=== PATIENT | male | born 1980 | race Caucasian/White ===

== ENCOUNTER 2025-10-01 20:09 | Emergency (ER) | payer OTHER, SELFPAY ==
[2025-10-01 20:17] VITALS: BP 127/83; PULSE 133; O2SAT 98; BMI 30.1
--- NOTE | 2025-10-01 20:57 | XR_ITS ---
[place] [id number] Patient Name: SABINO CARDENAS MRN: [id number] date: 1980 Sex: M Assigned Patient Location: ER Current Patient Location: ED.MAIN Accession/Order Number: [id number] Exam Date: 10/01/2025 21:02 Report Date: 10/01/2025 21:15 At the request of: LUIS ARMANDO JAVIER MD Procedure: XR ankle RT min 3V 3 views right ankle HISTORY: Right ankle injury Adequate bony alignment without acute displaced fracture. Calcaneal spurring. Ankle mortise intact. Soft tissue prominence anteriorly. XR/XR ankle RT min 3V IMPRESSION: No acute displaced fracture. Impression dictated by: Alireza Taylor M.D. 10/01/2025 9:15 PM Dictation Location: [place] [id number] Electronically authenticated by: [id number] Y Date: 10/01/2025 21:15
--- OUTSIDE RECORDS SUMMARY | 2025-10-01 21:10 | XMS_ITS | Clinical Summary ---
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 4000 mL 4Active Additional Information Patient not taking.Reason: Course of Therapy Completed, Reported on 02/13/2025 peg 3350-Electrolytes (GOLYTELY) 236-22.74-6.74 -5.86 gram suspension Refer to printed patient instructions that will be mailed to you. 4000 mL 5Active Additional Information Patient not taking.Reason: Course of Therapy Completed, Reported on 02/13/2025 Active Problems ProblemNoted DateDiagnosed DateObesity, Class I, BMI 30-34.908/olitis 06/28/20242239Lgckwigmzry15/02/4748Yszcqgzecmn53/09/2024annabinoid hyperemesis jjpyjtch58/01/2024KI (acute kidney injury)02/26/20248883Cozvnbfbcjqh71/31/2024 Diverticular xkutzwr3302/26/2024Generalized abdominal pain02/26/2024Nausea & gavgaxiz84/31/2024annabis use cjwnkxer12/31/9187Wxafaa83/31/2024Lumbago 04/15/2015 Family History Medical HistoryRelationCommentsDiabetesMotherColon CancerNo Family History RelationStatusCommentsMotherAlive Social History Tobacco UseTypesPacks/DayYears UsedDateSmoking Tobacco: Some DaysCigarettes Smokeless Tobacco: Never Tobacco Cessation:Ready to Q uit: Not Asked; Counseling Given: Not Answered Alcohol UseStandard Drinks/WeekCommentsNever0 (1 standard drink = 0.6 oz pure alcohol)[facility] UtilitiesAnswerDate RecordedIn the past 12 months has the electric, gas, oil, or water [employer] threatened to shut off services in your home?No 12/03/2024Social Connection and Isolation PanelAnswerDate RecordedIn a typical week, how many times do you talk on the phone with family, friends, or neighbors?Once a week12/03/2024How often do you get together with friends or relatives?Never12/03/2024How often do you attend anabaptist or buddhist services? Never12/03/2024Do you belong to any clubs or organizations such as anabaptist groups, unions, fraternal or athletic groups, or school groups?No12/03/2024How often do you attend meetings of the clubs or organizations you belong to?Never 12/03/2024re you , , , , never , or living with a partner?Thkjkfktn12/06/2025UDIT-CAnswerDate RecordedQ1: How often do you have a drink containing alcohol?Never12/03/2024Q2: How many drinks containing alcohol do you have on a typical day when you are drinking?Patient does not drink12/03/2024Q3: How often do you have six or more drinks on one occasion?Never12/03/2024Overall Financial Resource Strain (CARDIA)AnswerDate RecordedHow hard is it for you to pay for the very basics like food, housing, medical care, and heating?Hard12/03/2024PHQ-2AnswerDate RecordedPHQ-2 score6 12/03/2024[facility] - Occupational Stress QuestionnaireAnswerDate RecordedDo you feel stress - tense, restless, nervous, or anxious, or unable to sleep at night because yourmind is troubled all the time - these days?Very much12/03/2024Exercise Vital SignAnswerDate RecordedOn average, how many days per week do you engage in moderate to strenuous exercise (like a brisk walk)?Patient sykgzzvs19/06/2025On average, how many minutes do you engage in exercise at this level?Patient oclseawy84/06/2025Hunger Vital Sign AnswerDate RecordedWithin the past 12 months, you worried that your food would run out before you got the money to buymore.Often true12/03/2024Within the past 12 months, the food you bought just didn't last and you didn't have money to get more.Often true12/03/2024PRAPARE - TransportationAnswerDate RecordedIn the past 12 months, has lack of transportation kept you from medical appointments or from getting medications?No12/03/2024In the past 12 months, has lack of transportation kept you from meetings, work, or from getting things needed for daily living?No12/03/2024Housing Stability Vital SignAnswerDate RecordedIn the last 12 months, was there a time when you were not able to pay the mortgage or rent on time?No06/29/2024In the last 12 months, how many places have you lived?1 06/29/2024In the last 12 months, was there a time when you did not have a steady place to sleep or slept in ashelter (including now)?No06/29/2024rea Deprivation IndexAnswerDate RecordedNational Score (1-100), lower number is lower risk98 02/27/2024State Score (1-10), lower number is lower bqvy424502/27/2024ata from: https://www.neighborhoodatlas.medicine.[facility].edu/. Last address used for pnmptvwkubn[address]02/27/2024Sex and Gender InformationValueDate Recorded Sex Assigned at AxxjuTtyu75/09/2022 1:54 PM EDTLegal VivXdpe80/02/2012 8:25 AM ESTGender TxsdhhkrWwgy54/09/2022 1:54 PM EDTSexual AxiipddoxvtCvcvpnhy91/09/2022 1:54 PM EDT Last Filed Vital Signs Vital SignReadingTime TakenCommentsBlood Upgsjozu755/9902/13/2025 2:39 PM EDT Pscel16448/19/2025 2:39 PM CMNQthjvsnsexa76.9 ??C (98.4 ??F)02/13/2025 2:39 PM EDTRespiratory Shxt526902/13/2025 2:39 PM EDTOxygen Gvqaqtjkta82%02/13/2025 2:39 PM EDTInhaled Oxygen Concentration--Lsefzn53.7 kg (189 lb 0.7 oz)02/13/2025 2:39 PM LDCDiijsl055.2 cm (5' 7 )12/05/2024 2:36 PM ESTBody Mass Index29.61012/05/2024 2:36 PM EST Plan of Treatment Health MaintenanceDue DateLast DoneCommentsAnxiety Nygrxhqzl81/26/2000Depression Bbircktea17/26/2000DTaP,Tdap,Td Vaccine (1 - Tdap)2001Hepatitis B Vaccine (1 of 3 - 19+ 3-dose series)2001Pneumococcal Vaccine (1 of 2 - PCV) 2001HPV Vaccine (1 - 3-dose SCDM series)2009Lipid Screening 2017Covid-19 Vaccine (1 - season)2025Influenza Vaccine (#1) 2025HIV VijycxnxwHzuswwvfn56/08/2025Hepatitis C ScreeningCompleted 12/05/2024 Procedures Procedure NamePriorityDate/TimeAssociated DiagnosisCommentsHIV 1/2 COMBO WITH REFLEX TO PEULHRBKEBYLSTBXvumpcw63/08/2025 3:00 PM EST STD exposure HEPATITIS C ANTIBODY IA WITH UCXXVGDGRJXEWtdrqzv67/08/2025 3:00 PM EST STD exposure from Last 3 Months or Most Recently Relevant to Health Maintenance Results * HIV 1/2 COMBO WITH REFLEX TO DIFFERENTIATION (12/05/2024 3:00 PM EST)Component ValueRef RangeTest MethodAnalysis TimePerformed AtPathologist SignatureHIV 12 Combo (Ag/Ab)ZlddpvxpfcjRgvqhomuijv29/09/2025 11:38 [facility] AB (Confirmatory)12/06/2024 11:38 AM [facility]:Test not indicated.HIV Oqqxpqjzaaczrb32/09/2025 11:38 AM [facility]: No evidence of HIV-1 or HIV-2 infection. Should recent infection be suspected, repeat testing may be considered 2-3 weeks after this draw. [place] Rev. Code 3701.243(E): This information has been disclosed to you from confidential records protected from disclosure by state law. ??You shall make no further disclosure of this information without the specific, written, and informed release of the individual to whom it pertains or as otherwise permitted by state law. A general authorization for the release of medical or other information is not sufficient for the purpose of the release of HIV test results or diagnoses. Specimen (Source)Anatomical Location / LateralityCollection Method / Volume Collection TimeReceived TimeBloodBLOOD SPECIMEN / UnknownVenipuncture / Unknown 12/05/2024 3:00 PM EST12/05/2024 3:00 PM EST Narrative Authorizing ProviderResult TypeResult StatusMazen Fernanda ERAZOLABORATORYFinal ResultPerforming OrganizationAddressCity/State/ZIP CodePhone Number [facility] [address] [place] [address], * HEPATITIS C ANTIBODY IA WITH CONFIRMATION (12/05/2024 3:00 PM EST)Component ValueRef RangeTest MethodAnalysis TimePerformed AtPathologist SignatureHep C Antibody VHJqroxxnuQsutbcdp00/09/2025 11:13 AM [facility]:The result suggests no evidence of active infection with Hepatitis C virus. Should recent infectionbe suspected, repeat testing may be considered 4-6 weeks after this draw.Specimen (Source)Anatomical Location / Laterality Collection Method / VolumeCollection TimeReceived TimeBloodBLOOD SPECIMEN / UnknownVenipuncture / Woavymy8612/05/2024 3:00 PM EST12/05/2024 3:00 PM EST Narrative Authorizing ProviderResult TypeResult StatusMazen Fernanda ERAZOLABORATORYFinal ResultPerforming OrganizationAddressCity/State/ZIP CodePhone Number [facility] [address] [place] [address], [place] from Last 3 Months or Most Recently Relevant to Health Maintenance Insurance Advance Directives * Full Code (Latest Code Status on File) Date ActivatedDate InactivatedComments02/26/2024 8:48 PM02/28/2024 10:56 AMQuestion AnswerCommentsFull Code Order Discussed With:* Patient Care Teams Team MemberRelationshipSpecialtyStart DateEnd Date Shahana Michael MD [address] [place] [address] Internal Medicine12/05/24
--- OUTSIDE RECORDS SUMMARY | 2025-10-01 21:10 | XMS_ITS | Clinical Summary ---
Author Organization [facility] Address [address] [facility], [address] [place] [address] Care Team Providers Care P D Driver Name Role Phone Unavailable Primary Care Provider Unavailabl e Allergies Active AllergyReactionsCriticalityNoted DateCommentsErythromycinRashLow 04/18/2015Erythromycin BaseOther (See Comments)High03/30/2025NaproxenNausea Only 02/08/2024 Medications MedicationSigDispense QuantityRefillsLast FilledStart DateEnd DateStatus ondansetron (ZOFRAN) 4 MG tablet Take 1 tablet by mouth every 8 hours as needed for Nausea 20 tablet 08/10/2024ctive Additional Information Patient not taking.Reported on 02/05/2025 potassium chloride (K-TAB) 20 MEQ TBCR extended release tablet Take 1 tablet by mouth daily for 10 days 10 tablet 10/25/2024ctive omeprazole (PRILOSEC) 40 MG delayed release capsule Indications:Gastroesophageal reflux disease without esophagitisTake 1 capsule by mouth every morning (before breakfast) 30 capsule 10/25/2024ctive dicyclomine (BENTYL) 10 MG capsule Take 1 capsule by mouth 4 times daily as needed (abd pain) 20 capsule 5Active Additional Information Patient not taking.Reported on 02/05/2025 metoclopramide (REGLAN) 10 MG tablet Take 1 tablet by mouth 4 times daily for 5 days 20 tablet 5Active ibuprofen (ADVIL;MOTRIN) 600 MG tablet Take 1 tablet by mouth 3 times daily as needed for Pain 30 tablet 5Active Active Problems ProblemNoted DateDiagnosed QlopZoyhxnr54/27/4943Hsnkniqgwge69/02/2024 Gastroesophageal reflux disease without vibxkcucrim37/29/2024hronic nausea 02/29/2024hronic abdominal pain02/29/2024MI 31.0-31.9,adult02/29/2024annabis use groesctc25/31/2996Qgwrzq35/31/2024bdominal pain10/30/2023 Resolved Problems ProblemNoted DateDiagnosed DateResolved DateAKI (acute kidney injury)10/25/2023 02/29/20249365Ztnqsqchsczofd52/10/202304/03/2024 Encounters DateTypeDepartmentCare GuppNophivrqadk75/28/2025 4:58 PM EDT - 08/25/2025 7[facility] [address] [place] [phone] Calcaneal spur of right foot (Primary Dx); Abdominal pain, unspecified abdominal location Discharge Disposition: Home or Self Care08/25/20256101Rqxlup58/07/2025 6:01 PM EDT - 08/04/2025 9:45 [facility] [address] [place] [address] [phone] Other fatigue; Muscle cramps Discharge Disposition: Home or Self Care08/04/2025Travelfrom Last 3 Months Social History Tobacco UseTypesPacks/DayYears UsedDateSmoking Tobacco: Every DayCigarettes Smokeless Tobacco: Never Tobacco Cessation:Ready to Q uit: No; Counseling Given: Yes Alcohol UseStandard Drinks/WeekCommentsNot Currently0 (1 standard drink = 0.6 oz pure alcohol)[facility] UtilitiesAnswerDate RecordedIn the past 12 months has the [place], gas, oil, or water [employer] threatened to shut off services in your home?No10/24/2024UDIT-CAnswerDate RecordedQ1: How often do you have a drink containing alcohol?Never03/20/2025Q2: How many drinks containing alcohol do you have on a typical day when you are drinking?Patient does not drink03/20/2025Q3: How often do you have six or more drinks on one occasion?Never03/20/2025Overall Financial Resource Strain (CARDIA)AnswerDate RecordedHow hard is it for you to pay for the very basics like food, housing, medical care, and heating?Not hard at all02/29/2024HQ-2AnswerDate RecordedPHQ-9 Total Zlvbg727Exercise Vital SignAnswerDate RecordedOn average, how many days per week do you engage in moderate to strenuous exercise (like a brisk walk)?3 days02/29/2024On average, how many minutes do you engage in exercise at this level?30 min02/29/2024Hunger Vital SignAnswerDate RecordedWithin the past 12 months, you worried that your food would run out before you got the money to buymore.Never true10/24/2024 Within the past 12 months, the food you bought just didn't last and you didn't have money to get more.Never true10/24/2024RAPARE - TransportationAnswerDate RecordedIn the past 12 months, has lack of transportation kept you from medical appointments or from getting medications?No10/24/2024In the past 12 months, has lack of transportation kept you from meetings, work, or from getting things needed for daily living?No10/24/2024Housing Stability Vital SignAnswerDate RecordedIn the last 12 months, was there a time when you were not able to pay the mortgage or rent on time?No02/29/2024In the last 12 months, how many places have you lived?In the last 12 months, was there a time when you did not have a steady place to sleep or slept in [facility] (including now)?No 02/29/2024Housing Stability Vital SignAnswerDate RecordedIn the last 12 months, was there a time when you were not able to pay the mortgage or rent on time?No 10/24/2024In the past 12 months, how many times have you moved where you were living?t any time in the past 12 months, were you homeless or living in a [facility] (including now)?No10/24/2024UDIT-CAnswerDate RecordedQ1: How often do you have a drink containing alcohol?Never08/25/2025Q2: How many drinks containing alcohol do you have on a typical day when you are drinking?Patient does not drink08/25/2025Q3: How often do you have six or more drinks on one occasion?Never08/25/2025Interpersonal Safety ([facility] HRSN)AnswerDate RecordedHow often does anyone, including family and friends, physically hurt you? Food InsecurityAnswerDate RecordedWithin the past 12 months, you worried that your food would run out before you got the money to buymore.Within the past 12 months, the food you bought just didn't last and you didn't have money to get more.Interpersonal Safety Domain Source: IP Abuse ScreeningAnswerDate RecordedPhysical ajqeqBofxgq03/28/2025Verbal abuseDenies 08/25/2025Emotional esophPphifj48/28/2025Financial sgpwsZnfotp12/28/2025Sexual gsedvCufyrv46/28/2025Sex and Gender InformationValueDate RecordedSex Assigned at GwmfoAtmy38/01/2024 4:16 PM ESTLegal JhoUeth4701/08/2013 11:48 PM ESTGender BcktgslwBaae58/01/2024 4:16 PM ESTSexual AtuctlsfnntDtrykfye34/01/2024 4:16 PM EST Last Filed Vital Signs Vital SignReadingTime TakenCommentsBlood Rebmzcnk242/78008/25/2025 6:15 PM EDT Dstud9340/28/2025 5:00 PM MRDVuppsasftus88.6 ??C (97.9 ??F)08/25/2025 5:00 PM EDTRespiratory Sywy933208/25/2025 5:00 PM EDTOxygen Tdfuramyci50%08/25/2025 6:43 PM EDTInhaled Oxygen Concentration--Ujbkpv05.5 kg (195 lb)08/25/2025 5:00 PM EDT Qslcvg188.2 cm (5' 7 )08/25/2025 5:00 PM EDTBody Mass Index30.54008/25/2025 5:00 PM EDT Plan of Treatment Health MaintenanceDue DateLast DoneCommentsVaricella vaccine (1 of 2 - 13+ 2- dose series)1995HIV ygxxom0308/23/1997DTaP/Tdap/Td vaccine (1 - Tdap) 2001Hepatitis B vaccine (1 of 3 - 19+ 3-dose series)2001Pneumococcal 0-49 years Vaccine (1 of 2 - PCV)08/23/20012191Ycushp65/26/2022Depression Screen 504/01/2024Flu vaccine (#1)5COVID-19 Vaccine (1 - 2023- season)2025Diabetes bmgytn59611/, 3GFR test (Diabetes, CKD 3-4, OR last GFR 15-59)Wudmyejebark80/28/2025, 08/04/2025, 02/05/2025, Additional history existsHPV vaccine (No Doses Required)Completed Hepatitis A vaccineAged OutNo longer eligible based on patient's age to complete this topicHepatitis C screenDiscontinuedHib vaccineAged OutNo longer eligible based on patient's age to complete this topicMeningococcal (ACWY) vaccineAged OutNo longer eligible based on patient's age to complete this topicMeningococcal B vaccineAged OutNo longer eligible based on patient's age to complete this topicPolio vaccineAged OutNo longer eligible based on patient's age to complete this topic Procedures Procedure NamePriorityDate/TimeAssociated DiagnosisCommentsURINALYSIS WITH REFLEX TO ASWCCRCOTSK94/28/2025 6:[address] ABDOMEN PELVIS WO EGHYHWZZQMTS10/28/2025 5:47 PM EDT XR FOOT RIGHT (MIN 3 VIEWS)STAT08/25/2025 5:47 PM EDT COMPREHENSIVE METABOLIC LPIKRKSCL73/28/2025 5:19 PM EDT FXBNKTSPKS59/28/2025 5:19 PM EDT CBC WITH AUTO EUCXZBHXTTTWLCTG64/28/2025 5:19 PM EDT LACTIC NHWJWCWO64/07/2025 8:16 PM EDT PGPVPY8308/04/2025 6:21 PM EDT BASIC METABOLIC RVKLFQDWO89/07/2025 6:21 PM EDT LACTIC WSJMIFCT17/07/2025 6:21 PM EDT CBC WITH AUTO YYDJSTNQRLYAPNYG77/07/2025 6:21 PM EDT HEMOGLOBIN A4HPya-Rd21/28/2023 6:30 PM EST from Last 3 Months or Most Recently Relevant to Health Maintenance Results * Urinalysis with Reflex to Culture (08/25/2025 6:41 PM EDT)ComponentValueRef RangeTest MethodAnalysis TimePerformed AtPathologist SignatureColor, UAYellow Straw/Xaybfz6508/25/2025 6:44 PM [facility] LABClarity, UA RpwvvMmxxe85/28/2025 6:44 PM [facility] LABGlucose, Ur NegativeNegative mg/dL08/25/2025 6:44 PM [facility] Bilirubin, SqhdsVxuyeuinXvypdmdq98/28/2025 6:44 PM [facility] LABKetones, UrineNegativeNegative mg/dL08/25/2025 6:44 PM [facility] LABSpecific [place], UA1.0151.005 - 1.0772308/25/2025 6:44 PM [facility] LABBlood, AaadkMaqybyegHjmsoflz71/28/2025 6:44 PM [facility] LABpH, Urine7.05.0 - 9.009 6:44 PM [facility] LABProtein, UANegativeNegative mg/dL 08/25/2025 6:44 PM [facility] LABUrobilinogen, Urine0.2 <2.0 E.U./dL08/25/2025 6:44 PM [facility] LABNitrite, PhgtjZqglsxlqKcvbvivw10/28/2025 6:44 PM [facility] Leukocyte Esterase, DmtihYvbyxnyxEwlpclat99/28/2025 6:44 PM [facility] LABUrine Reflex to CultureNot Lbxxqgvix79/28/2025 6:44 PM EDT [facility] LABSpecimen (Source)Anatomical Location / LateralityCollection Method / VolumeCollection TimeReceived TimeUrine 08/25/2025 6:41 PM EDT08/25/2025 6:41 PM EDT Narrative Authorizing ProviderResult TypeResult StatusMattgeetha Rojo APPRENTICE INSTRUMENT TECHNICIAN - CNPURINE ORDERABLESFinal ResultPerforming OrganizationAddressCity/State/ZIP CodePhone Number [facility] [address] [phone] * CT ABDOMEN PELVIS WO CONTRAST Additional Contrast? None (08/25/2025 5:47 PM EDT)Anatomical RegionLateralityModalityAbdomen, Pelvis, HipComputed Tomography Specimen (Source)Anatomical Location / LateralityCollection Method / Volume Collection TimeReceived Time08/25/2025 7:11 PM EDT Impressions 08/26/2025 9:15 AM EDT 1. Diverticulosis worse in the sigmoid with a subtle area of mild inflammation in the proximal sigmoid may represent mild acute diverticulitis. 2. Minimal fat containing left inguinal hernia without bowel involvement. 3. Borderline left inguinal nodes measure up to 1 cm. Narrative 08/26/2025 9:15 AM EDT EXAMINATION: CT OF THE ABDOMEN AND PELVIS WITHOUT CONTRAST 08/25/2025 5:47 pm TECHNIQUE: CT of the abdomen and pelvis was performed without the administration of intravenous contrast. Multiplanar reformatted images are provided for review. Automated exposure control, iterative reconstruction, and/or weight based adjustment of the mA/kV was utilized to reduce the radiation dose to as low as reasonably achievable. COMPARISON: October 24, 2024 HISTORY: ORDERING SYSTEM PROVIDED HISTORY: Left side abd pain TECHNOLOGIST PROVIDED HISTORY: Reason for exam:->Left side abd pain Additional Contrast?->None Decision Support Exception - unselect if not a suspected or confirmed emergency medical condition->Emergency Medical Condition ([place]) What reading provider will be dictating this exam?->CRC FINDINGS: Lower Chest: Lung bases appear unremarkable. Organs: The liver and gallbladder, pancreas and spleen, adrenals, kidneys, aorta and IVC appear stable. GI/Bowel: No bowel obstruction or perforation. ??Normal appendix. ??There is diverticulosis worse in the sigmoid with a subtle area of mild inflammation in the proximal sigmoid may represent mild acute diverticulitis. Pelvis: Urinary bladder and prostate appear unremarkable. ??Minimal fat containing left inguinal hernia without bowel involvement. ??Borderline left inguinal nodes measure up to 1 cm. ??No iliac lymphadenopathy. Peritoneum/Retroperitoneum: No retroperitoneal lymphadenopathy. ??No significant ventral hernia. Bones/Soft Tissues: Lumbar spine and sacrum appear stable. Procedure Note Neha Sloan MD - 08/26/2025 EXAMINATION: CT OF THE ABDOMEN AND PELVIS WITHOUT CONTRAST 08/25/2025 5:47 pm TECHNIQUE: CT of the abdomen and pelvis was performed without the administration of intravenous contrast. Multiplanar reformatted images are provided forreview. Automated exposure control, iterative reconstruction, and/or weightbased adjustment of the mA/kV was utilized to reduce the radiation dose to aslow as reasonably achievable. COMPARISON: October 24, 2024 HISTORY: ORDERING SYSTEM PROVIDED HISTORY: Left side abd pain TECHNOLOGIST PROVIDED HISTORY: Reason for exam:->Left side abd pain Additional Contrast?->None Decision Support Exception - unselect if not a suspected or confirmed emergency medical condition->Emergency Medical Condition ([place]) What reading provider will be dictating this exam?->CRC FINDINGS: Lower Chest: Lung bases appear unremarkable. Organs: The liver and gallbladder, pancreas and spleen, adrenals,kidneys, aorta and IVC appear stable. GI/Bowel: No bowel obstruction or perforation. Normal appendix. Thereis diverticulosis worse in the sigmoid with a subtle area of mildinflammation in the proximal sigmoid may represent mild acute diverticulitis. Pelvis: Urinary bladder and prostate appear unremarkable. Minimal fat containing left inguinal hernia without bowel involvement. Borderlineleft inguinal nodes measure up to 1 cm. No iliac lymphadenopathy. Peritoneum/Retroperitoneum: No retroperitoneal lymphadenopathy. No significant ventral hernia. Bones/Soft Tissues: Lumbar spine and sacrum appear stable. IMPRESSION: 1. Diverticulosis worse in the sigmoid with a subtle area of mild inflammation in the proximal sigmoid may represent mild acutediverticulitis. 2. Minimal fat containing left inguinal hernia without bowelinvolvement. 3. Borderline left inguinal nodes measure up to 1 cm. Authorizing ProviderResult TypeResult StatusMatthew Seda Rojo APPRENTICE INSTRUMENT TECHNICIAN - CNPIMG CT ORDERABLESFinal Result * XR FOOT RIGHT (MIN 3 VIEWS) (08/25/2025 5:47 PM EDT)Anatomical Region LateralityModalityFoot, AnkleComputed RadiographySpecimen (Source)Anatomical Location / LateralityCollection Method / VolumeCollection TimeReceived Time 08/25/2025 7:39 PM EDT Impressions 08/25/2025 7:39 PM EDT No acute findings in the right foot. Narrative 08/25/2025 7:39 PM EDT EXAM: XR Right Foot Complete, 3 or More Views EXAM DATE/TIME: 08/25/2025 5:47 pm CLINICAL HISTORY: ORDERING SYSTEM PROVIDED HISTORY: heel and foot pain ??TECHNOLOGIST PROVIDED HISTORY: Reason for exam:->heel and foot pain What reading provider will be dictating this exam?->CRC TECHNIQUE: Frontal, lateral and oblique views of the right foot. COMPARISON: No significant arthritic changes noted. ??Impression. ??No evidence of acute fracture or traumatic malalignment. FINDINGS: Bones/joints: ??Plantar/calcaneal spur without evidence of erosion. ??No acute fracture. ??No dislocation. Soft tissues: ??No acute findings. ??No radiopaque foreign body. Procedure Note Gualberto Matias MD - 08/25/2025 EXAM: XR Right Foot Complete, 3 or More Views EXAM DATE/TIME: 08/25/2025 5:47 pm CLINICAL HISTORY: ORDERING SYSTEM PROVIDED HISTORY: heel and foot pain TECHNOLOGISTPROVIDED HISTORY: Reason for exam:->heel and foot pain What reading provider willbe dictating this exam?->CRC TECHNIQUE: Frontal, lateral and oblique views of the right foot. COMPARISON: No significant arthritic changes noted. Impression. No evidence ofacute fracture or traumatic malalignment. FINDINGS: Bones/joints: Plantar/calcaneal spur without evidence of erosion. Noacute fracture. No dislocation. Soft tissues: No acute findings. No radiopaque foreign body. IMPRESSION: No acute findings in the right foot. Authorizing ProviderResult TypeResult StatusMatthesilvio Seda Rojo APPRENTICE INSTRUMENT TECHNICIAN - CNPIMG DIAGNOSTIC IMAGING ORDERABLESFinal Result * (ABNORMAL) CBC with Auto Differential (08/25/2025 5:19 PM EDT) Only the most recent of2 resultswithin the time period is included. ComponentValueRef RangeTest MethodAnalysis TimePerformed AtPathologist Signature WBC11.9(H)4.2 - 9.0 K/uL08/25/2025 5:21 PM [facility] LABRBC 4.61(L)4.63 - 6.08 M/uL08/25/2025 5:21 PM [facility] Tvxndepjbm94.2(L)13.7 - 17.5 g/dL08/25/2025 5:21 PM [facility] GVFVppixiqwrv10.042.0 - 52.0 %08/25/2025 5:21 PM [facility] TGWSHS71.179.0 - 92.2 fL08/25/2025 5:21 PM [facility] PNXBHK42.625.7 - 32.2 pg08/25/2025 5:21 PM [facility] YRGFTXU64.4(L)32.3 - 36.5 %08/25/2025 5:21 PM [facility] BVOPVP12.9(H)11.6 - 14.4 %08/25/2025 5:21 PM [facility] HYUGjbtsxujx467015 - 337 K/uL08/25/2025 5:21 PM [facility] LABNeutrophils %61.334.0 - 67.9 %08/25/2025 5:21 PM [facility] LABImmature Granulocytes %0.3%08/25/2025 5:21 PM [facility] LABLymphocytes %31.5%08/25/2025 5:21 PM [facility] LABMonocytes %4.9(L)5.3 - 12.2 %08/25/2025 5:21 PM [facility] LABEosinophils %1.40.8 - 7.0 %08/25/2025 5:21 PM [facility] LABBasophils %0.60.2 - 1.2 %08/25/2025 5:21 PM [facility] LABNeutrophils Absolute7.3(H)1.8 - 5.4 K/uL08/25/2025 5:21 PM EDT [facility] LABImmature Granulocytes #0.0K/uL08/25/2025 5:21 PM [facility] LABLymphocytes Absolute3.8(H)1.3 - 3.6 K/uL 08/25/2025 5:21 PM [facility] LABMonocytes Absolute0.60.3 - 0.8 K/uL08/25/2025 5:21 PM [facility] LABEosinophils Absolute0.20.0 - 0.5 K/uL08/25/2025 5:21 PM [facility] Basophils Absolute0.10.0 - 0.1 K/08/25/2025 5:21 PM [facility] LABSpecimen (Source)Anatomical Location / LateralityCollection Method / VolumeCollection TimeReceived TimeBloodBLOOD SPECIMEN / Ekaqueg9708/25/2025 5:19 PM EDT08/25/2025 5:19 PM EDT Narrative Authorizing ProviderResult TypeResult StatusMattgeetha Rojo APPRENTICE INSTRUMENT TECHNICIAN - CNPHEMATOLOGY ORDERABLESFinal ResultPerforming OrganizationAddressCity/State/ZIP CodePhone Number [facility] [address] [place] [address], [facility] [phone] * Lipase (08/25/2025 5:19 PM EDT)ComponentValueRef RangeTest MethodAnalysis Time Performed AtPathologist FalqoreoxPfcsix9242 - 95 U/L08/25/2025 5:36 PM EDT [facility] LABSpecimen (Source)Anatomical Location / LateralityCollection Method / VolumeCollection TimeReceived TimeBloodBLOOD SPECIMEN / Kvoszbd2408/25/2025 5:19 PM EDT08/25/2025 5:19 PM EDT Narrative Authorizing ProviderResult TypeResult StatusMattblairesilvio Rojo APPRENTICE INSTRUMENT TECHNICIAN - CNPCHEMISTRY ORDERABLESFinal ResultPerforming OrganizationAddressCity/State/ZIP CodePhone Number [facility] [address] [place] [id number] [place] [phone] * (ABNORMAL) Comprehensive Metabolic Panel (08/25/2025 5:19 PM EDT)Component ValueRef RangeTest MethodAnalysis TimePerformed AtPathologist SignatureSodium 592270 - 144 mEq/L08/25/2025 5:25 PM [facility] Potassium3.3(L)3.4 - 4.9 mEq/L08/25/2025 5:25 PM [facility] QIWTcwkbbwg74832 - 107 mEq/L08/25/2025 5:25 PM [facility] GRXOE95239 - 31 mEq/L08/25/2025 5:36 PM [facility] LABAnion Owu572 - 15 mEq/L08/25/2025 5:36 PM [facility] EBBLfpjorb098(H)70 - 99 mg/dL08/25/2025 5:36 PM [facility] LABBUN5(L)6 - 20 mg/dL08/25/2025 5:36 PM [facility] LABCreatinine0.800.70 - 1.20 mg/dL08/25/2025 5:36 PM [facility] LABEst, Glom Filt Rate>90.0>60008/25/2025 5:36 PM [facility] LABComment: Pediatric calculator link https://www.kidney.org/professionals/kdoqi/gfr_calculatorped Effective Aug 30, 2022 These results are not intended for use in patients <18 years of age. eGFR results are calculated without a race factor using the 2020 CKD-EPI equation. ??Careful clinical correlation is recommended, particularly when comparing to results calculated using previous equations. The CKD-EPI equation is less accurate in patients with extremes of muscle mass, extra-renal metabolism of creatinine, excessive creatinine ingestion, or following therapy that affects renal tubular secretion. Calcium8.58.5 - 9.9 mg/dL08/25/2025 5:36 PM [facility] Total Protein5.6(L)6.3 - 8.0 g/dL08/25/2025 5:37 PM [facility] LABAlbumin3.63.5 - 4.6 g/dL08/25/2025 5:35 PM [facility] LABTotal Bilirubin0.30.2 - 0.7 mg/dL08/25/2025 5:37 PM [facility] LABAlkaline Clteqdwiirq0299 - 104 U/L08/25/2025 5:35 PM [facility] YOZUEA073 - 41 U/L08/25/2025 5:35 PM [facility] SNHUTP018 - 40 U/L08/25/2025 5:36 PM [facility] Globulin2.0(L)2.3 - 3.5 g/dL08/25/2025 5:37 PM [facility] LABSpecimen (Source)Anatomical Location / LateralityCollection Method / Volume Collection TimeReceived TimeBloodBLOOD SPECIMEN / Omitnzp6208/25/2025 5:19 PM EDT 08/25/2025 5:19 PM EDT Narrative Authorizing ProviderResult TypeResult StatusMattgeetha Rojo APPRENTICE INSTRUMENT TECHNICIAN - CNPCHEMISTRY ORDERABLESFinal ResultPerforming OrganizationAddressCity/State/ZIP CodePhone Number [facility] [address] [place] [id number], [facility] [phone] * Lactic Acid (08/04/2025 8:16 PM EDT) Only the most recent of2 resultswithin the time period is included. ComponentValueRef RangeTest MethodAnalysis TimePerformed AtPathologist Signature Lactic Acid2.00.5 - 2.2 mmol/L08/04/2025 8:35 PM [facility] LABSpecimen (Source)Anatomical Location / LateralityCollection Method / Volume Collection TimeReceived TimeBloodBLOOD SPECIMEN / Tgtxjba7408/04/2025 8:16 PM EDT 08/04/2025 8:16 PM EDT Narrative Authorizing ProviderResult TypeResult StatusCarmelita Prieto APPRENTICE INSTRUMENT TECHNICIAN - CNPCHEMISTRY ORDERABLESFinal ResultPerforming OrganizationAddressCity/State/ZIP CodePhone Number [facility] [address] [place] [address], [facility] [phone] * CK (08/04/2025 6:21 PM EDT)ComponentValueRef RangeTest MethodAnalysis Time Performed AtPathologist SignatureTotal MC9750 - 190 U/L08/04/2025 6:39 PM EDT [facility] LABSpecimen (Source)Anatomical Location / LateralityCollection Method / VolumeCollection TimeReceived TimeBloodBLOOD SPECIMEN / Ruycxmd7508/04/2025 6:21 PM EDT08/04/2025 6:21 PM EDT Narrative Authorizing ProviderResult TypeResult StatusNicolasbelkis Andres Conner APPRENTICE INSTRUMENT TECHNICIAN - CNPCHEMISTRY ORDERABLESFinal ResultPerforming OrganizationAddressCity/State/ZIP CodePhone Number [facility] [address] [place] [address], [facility] [phone] * (ABNORMAL) Basic Metabolic Panel (08/04/2025 6:21 PM EDT)ComponentValueRef RangeTest MethodAnalysis TimePerformed AtPathologist KjsbyztrhJaufra597738 - 144 mEq/L08/04/2025 6:29 PM [facility] LABPotassium3.2(L) 3.4 - 4.9 mEq/L08/04/2025 6:29 PM [facility] LABComment: Sample severely hemolyzed. Result may be artificially elevated. Jygrmakw03896 - 107 mEq/L08/04/2025 6:29 PM [facility] JL72407 - 31 mEq/L08/04/2025 6:39 PM [facility] LABAnion Gap 139 - 15 mEq/L08/04/2025 6:39 PM [facility] INMSwdrnmz3719 - 99 mg/dL08/04/2025 6:39 PM [facility] LABBUN4(L)6 - 20 mg/dL 08/04/2025 6:39 PM [facility] LABCreatinine0.900.70 - 1.20 mg/dL08/04/2025 6:39 PM [facility] LABEstRosemary Filt Rate >90.0>60008/04/2025 6:39 PM [facility] LABComment: Pediatric calculator link https://www.kidney.org/professionals/kdoqi/gfr_calculatorped Effective Aug 30, 2022 These results are not intended for use in patients <18 years of age. eGFR results are calculated without a race factor using the 2020 CKD-EPI equation. ??Careful clinical correlation is recommended, particularly when comparing to results calculated using previous equations. The CKD-EPI equation is less accurate in patients with extremes of muscle mass, extra-renal metabolism of creatinine, excessive creatinine ingestion, or following therapy that affects renal tubular secretion. Calcium9.08.5 - 9.9 mg/dL08/04/2025 6:39 PM [facility] Specimen (Source)Anatomical Location / LateralityCollection Method / Volume Collection TimeReceived TimeBloodBLOOD SPECIMEN / Pdxqomi9108/04/2025 6:21 PM EDT 08/04/2025 6:21 PM EDT Narrative Authorizing ProviderResult TypeResult StatusKaci Andres Prieto APPRENTICE INSTRUMENT TECHNICIAN - CNPCHEMISTRY ORDERABLESFinal ResultPerforming OrganizationAddressCity/State/ZIP CodePhone Number [facility] [address] [id number], [facility] [phone] * Hemoglobin A1C (10/25/2023 6:30 PM EST)ComponentValueRef RangeTest Method Analysis TimePerformed AtPathologist SignatureHemoglobin A1C5.64.8 - 5.9 % 10/25/2023 10:59 PM [facility] LABSpecimen (Source) Anatomical Location / LateralityCollection Method / VolumeCollection Time Received TimeBloodBLOOD SPECIMEN / [id number]/25/2023 6:30 PM EST10/25/2023 10:57 PM EST Narrative Authorizing ProviderResult TypeResult StatusRafik Masslroi MDCHEMISTRY ORDERABLES Final ResultPerforming OrganizationAddressCity/State/ZIP CodePhone Number [facility] [address] [place] [address], [facility] [phone] [facility] [address] [place] [address], [facility] [phone] from Last 3 Months or Most Recently Relevant to Health Maintenance Insurance Advance Directives * Full Code (Latest Code Status on File) Date ActivatedDate FkfwerzmegbFnvmfhux94/27/2024 4:48 PM10/25/2024 2:12 PM * Full Code Date ActivatedDate NhtaakoisyeQwruqtxe73/3/2023 5:51 PM10/31/2023 6:47 PM * Full Code Date ActivatedDate ZzejiykiujoVhxzffec04/28/2023 7:24 PM10/26/2023 1:16 PM * Full Code Date ActivatedDate InactivatedComments01/09/2023 7:52 AM01/18/2023 5:29 PM * Full Code Date ActivatedDate InactivatedComments01/07/2023 6:56 PM2 12:25 AM
--- OUTSIDE RECORDS SUMMARY | 2025-10-01 21:10 | XMS_ITS | Clinical Summary ---
Author Organization [facility] Address [address] [place] [address] Phone Care Team Providers Care Forepart Laster Name Role Phone Generic Provider, No Assigned Pcp MD Primary Car e Provider Unavailable Allergies Active AllergyReactionsCriticalityNoted DateCommentsErythromycinRash,UnknownLow 04/18/2015NaproxenNausea Only,Nausea/sujbgxsr39/13/2024 Medications MedicationSigDispense QuantityRefillsLast FilledStart DateEnd DateStatus methocarbamol (Robaxin) 500 mg tablet Indications:Muscle crampsTake 1 tablet (500 mg) by mouth 2 times a day as needed for muscle spasms for up to 10 days. 12 tablet 5Active HYDROcodone-acetaminophen (Freeland) 5-325 mg tablet Indications:painTake 1 tablet by mouth every 12 hours if needed for severe pain (7 - 10) for up to 7 days. 14 tablet Expired Active Problems ProblemNoted DateDiagnosed DateObesity, Class I, BMI 30-34.908/olitis 06/28/20245553Hbzueftxijj56/02/2024Gastroesophageal reflux disease without qypapvooduq52/29/6307Rqddtyzlhvz56/09/2024annabinoid hyperemesis syndrome 02/27/2024KI (acute kidney injury)02/26/2024iverticular tyhtjuj5102/26/2024 Nausea & ycopxkyw06/31/8994Bhlcld03/31/2024Generalized abdominal pain10/30/2023 Qcfhjci3104/15/2015 Encounters DateTypeDepartmentCare KvcuHaethtshpwi62/30/2025 5:12 PM EDT - 08/27/2025 11:59 PM EDTHospital Encounter [facility] [address] [place] [address] Lumbar radiculopathy Discharge Disposition: Home08/27/2025 1:45 PM EDTOffice Visit [address] [place] [address] Verena Garay MD Low back pain, unspecified back pain laterality, unspecified chronicity, unspecified whether sciatica present; Lumbar ozdkhlcrlolmg11/30/2025 1:30 PM EDTAncillary Procedure [address] [place] [address] Low back pain, unspecified back pain laterality, unspecified chronicity, unspecified whether sciatica ryvsjyp9708/27/20255662Yihrrp52/20/2025 11:15 PM EDT - 08/18/2025 12:11 AM EDTEmergency [facility] [address] [place] [address], [place] [address] Muscle cramps (Primary Dx); Plantar fasciitis Discharge Disposition: Home08/17/20256676Ilsmzb18/09/2025 10:49 PM EDT - 08/07/2025 3:49 [facility] [address] [place] [phone] Orlando Sibley DO Whitener, Noah S, DO Abdominal pain, unspecified abdominal location (Primary Dx); Hypokalemia; Nausea Discharge Disposition: Home08/06/2025Travelfrom Last 3 Months Social History Tobacco UseTypesPacks/DayYears UsedDateSmoking Tobacco: Every DayCigarettes Smokeless Tobacco: Never Tobacco Cessation:Ready to Q uit: Not Asked; Counseling Given: Not Answered Sex and Gender InformationValueDate RecordedSex Assigned at KzaklAweo91/22/2024 5:46 PM ESTLegal TayGlog11/25/2022 10:09 AM ESTGender EjlemnngOubb14/22/2024 5:46 PM ESTSexual UjkmjjqqcawTzyhmaus95/22/2024 5:46 PM EST Last Filed Vital Signs Vital SignReadingTime TakenCommentsBlood Ftqjhgqw175/9108/17/2025 11:05 PM EDT Pzmah157008/17/2025 11:05 PM MLHAriywdlvrod82.9 ??C (98.4 ??F)08/17/2025 11:05 PM EDTRespiratory Ioty750808/17/2025 11:05 PM EDTOxygen Ywyumtrgwx04%08/07/2025 3:15 AM EDTInhaled Oxygen Concentration--Cwbsjn01.9 kg (185 lb)08/17/2025 11:05 PM TMKRhlqio251.2 cm (5' 7 )08/17/2025 11:05 PM EDTBody Mass Index28.98008/17/2025 11:05 PM EDT Plan of Treatment Health MaintenanceDue DateLast DoneCommentsHIV Gaqwwlaqo1982Lipid Panel 1982Yearly Adult Dcywvqga1982MMR Vaccines (1 of 1 - Standard series) 1983Hepatitis C Wzpgmepkd67/26/2000Hepatitis A Vaccines (1 of 2 - Risk 2- dose series)2001Hepatitis B Vaccines (1 of 3 - 19+ 3-dose series) 2001Pneumococcal Vaccine: Pediatrics and At-Risk Adult Patients (1 of 2 - PCV)2001DTaP/Tdap/Td Vaccines (1 - Tdap)2004HPV Vaccines (1 - 3-dose standard series)2009Influenza Vaccine (#1)2025OVID-19 Vaccine (1 - season)2025Diabetes Leaxexvvq90/09/247569/07/2025, 04/18/2025, 10/25/2023, Additional history existsZoster Vaccines (1 of 2)2032HIB VaccinesAged OutNo longer eligible based on patient's age to complete this topic IPV VaccinesAged OutNo longer eligible based on patient's age to complete this topicMeningococcal VaccineAged OutNo longer eligible based on patient's age to complete this topicRotavirus VaccinesAged OutNo longer eligible based on patient's age to complete this topic Procedures Procedure NamePriorityDate/TimeAssociated DiagnosisCommentsMR LUMBAR SPINE WO SKZKCHNVCGJO08/30/2025 5:50 PM EDT Lumbar radiculopathy XR LUMBAR SPINE 2-3 ZDKNAXrwxqbx43/30/2025 1:33 PM EDT Low back pain, unspecified back pain laterality, unspecified chronicity, unspecified whether sciatica present ECG 12-LATHKFTD00/09/2025 11:46 PM EDT XR CHEST 1 MTHLEDVB60/09/2025 11:[address] ABDOMEN PELVIS W IV VLUQKDNSCART29/09/2025 11:37 PM EDT CBC WITH AUTO ALBRHWJYGMPARBYU22/09/2025 11:35 PM EDT EXTRA URINE GARAY FJIPSKUK58/09/2025 11:19 PM EDTURINALYSIS WITH REFLEX MICROSCOPIC AND YOKZFKZDTCJ21/09/2025 11:19 PM EDT URINALYSIS WITH REFLEX MICROSCOPIC AND AVKBVNDTDIO01/09/2025 11:19 PM EDT YSDKNYTVZY39/09/2025 11:14 PM EDT MLLKEETJQMV74/09/2025 11:14 PM EDT TROPONIN I, HIGH BTXWLYDMPMPJTBX62/09/2025 11:14 PM EDT JZYAPOFKYRWEO71/09/2025 11:14 PM EDT COMPREHENSIVE METABOLIC AOJODCJRW78/09/2025 11:14 PM EDT LAVENDER GCZVaywrrx55/09/2025 11:11 PM EDT LIGHT BLUE SGKZfuyjqi22/07/2025 11:11 PM EDT EXTRA QEAOQOpovfrk34/09/2025 11:11 PM EDT from Last 3 Months Results * MR lumbar spine wo IV contrast (08/27/2025 5:50 PM EDT)Anatomical Region LateralityModalityNeuroMagnetic ResonanceSpecimen (Source)Anatomical Location / LateralityCollection Method / VolumeCollection TimeReceived Time08/27/2025 6:29 PM EDT08/27/2025 6:29 PM EDT Impressions 08/27/2025 6:28 PM EDT 1. No acute osseous abnormality. ?? 2. At L2-3: Mild bilateral neural foramina narrowing. No significant spinal canal stenosis. ?? 3. At L3-4: Mild bilateral neural foramina narrowing. No significant spinal canal stenosis. ?? 4. At L4-5: Xfxn-kv-vjgxilux bilateral neural foramina narrowing. No significant spinal canal stenosis. ?? MACRO: None ?? Signed by: Hermes Ramírez 08/27/2025 6:28 PM Dictation workstation: ?? [id number] Narrative 08/27/2025 6:28 PM EDT Interpreted By: Hermes Ramírez, STUDY: MR LUMBAR SPINE WO IV CONTRAST; ??08/27/2025 5:50 pm ?? INDICATION: Signs/Symptoms:pain. ?? ,M54.16 Radiculopathy, lumbar region ?? COMPARISON: None. ?? ACCESSION NUMBER(S): [id number] ?? ORDERING CLINICIAN: VERENA GARAY ?? TECHNIQUE: Sagittal T1, T2, STIR, axial T1 and T2 weighted images of the lumbar spine were acquired. ?? FINDINGS: Alignment: The vertebral alignment is maintained. ?? Vertebrae/Intervertebral Discs: The vertebral bodies demonstrate expected height. The marrow signal is within normal limits. The intervertebral discs also demonstrate normal signal and morphology. ?? Conus: The lower thoracic cord appears unremarkable. The conus terminates at . ?? T12-L1: ??There is no significant central canal or neural foraminal stenosis. ?? L1-2: Shallow posterior disc bulge, indenting the anterior thecal sac. Bilateral neural foramina are patent. No significant spinal canal stenosis. ?? L2-3: Shallow posterior disc bulge, indenting the anterior thecal sac. Mild bilateral neural foramina narrowing. No significant spinal canal stenosis. ?? L3-4: Shallow posterior disc bulge with superimposed 3-4 mm bilateral foraminal disc protrusion. Mild bilateral neural foramina narrowing. No significant spinal canal stenosis. ?? L4-5: 2 mm posterior disc bulge combining combination with mild bilateral facet arthropathy, resulting in tgyb-wi-wtawufts bilateral neural foramina narrowing. No significant spinal canal stenosis. ?? L5-S1: ??There is no significant central canal or neural foraminal stenosis. ?? The prevertebral and posterior paraspinous soft tissues are unremarkable. ?? Procedure Note Hermes Ramírez MD - 08/27/2025 Interpreted By: Hermes Ramírez, STUDY: MR LUMBAR SPINE WO IV CONTRAST; 08/27/2025 5:50 pm INDICATION: Signs/Symptoms:pain. ,M54.16 Radiculopathy, lumbar region COMPARISON: None. ACCESSION NUMBER(S): [id number] ORDERING CLINICIAN: VERENA GARAY TECHNIQUE: Sagittal T1, T2, STIR, axial T1 and T2 weighted images of the lumbar spine were acquired. FINDINGS: Alignment: The vertebral alignment is maintained. Vertebrae/Intervertebral Discs: The vertebral bodies demonstrate expected height. The marrow signal is within normal limits. The intervertebral discs also demonstrate normal signal and morphology. Conus: The lower thoracic cord appears unremarkable. The conus terminates at . T12-L1: There is no significant central canal or neural foraminal stenosis. L1-2: Shallow posterior disc bulge, indenting the anterior thecal sac. Bilateral neural foramina are patent. No significant spinal canal stenosis. L2-3: Shallow posterior disc bulge, indenting the anterior thecal sac. Mild bilateral neural foramina narrowing. No significant spinal canal stenosis. L3-4: Shallow posterior disc bulge with superimposed 3-4 mm bilateral foraminal disc protrusion. Mild bilateral neural foramina narrowing. No significant spinal canal stenosis. L4-5: 2 mm posterior disc bulge combining combination with mild bilateral facet arthropathy, resulting in ihqu-zd-rvaskpzp bilateral neural foramina narrowing. No significant spinal canal stenosis. L5-S1: There is no significant central canal or neural foraminal stenosis. The prevertebral and posterior paraspinous soft tissues are unremarkable. IMPRESSION: 1. No acute osseous abnormality. 2. At L2-3: Mild bilateral neural foramina narrowing. No significant spinal canal stenosis. 3. At L3-4: Mild bilateral neural foramina narrowing. No significant spinal canal stenosis. 4. At L4-5: Izgl-ld-ervvuqtn bilateral neural foramina narrowing. No significant spinal canal stenosis. MACRO: None Signed by: Hermes Ramírez 08/27/2025 6:28 PM Dictation workstation: [id number] Authorizing ProviderResult TypeResult StatusVerena Garay MDIMJohn MRI PROCEDURESFinal Result * XR lumbar spine 2-3 views (08/27/2025 1:33 PM EDT)Anatomical RegionLaterality ModalityMusculoskeletal, SpineComputed RadiographySpecimen (Source)Anatomical Location / LateralityCollection Method / VolumeCollection TimeReceived Time 08/27/2025 1:48 PM EDT08/27/2025 1:48 PM EDT Narrative 08/27/2025 1:46 PM EDT Interpreted By: Verena Garay, STUDY: XR LUMBAR SPINE 2-3 VIEWS, 08/27/2025 1:33 pm ?? INDICATION: Signs/Symptoms:pain ?? ACCESSION NUMBER(S): [id number] ?? ORDERING CLINICIAN: VERENA GARAY ?? FINDINGS: Lumbar spine x-rays two views AP and lateral view: Satisfactory alignment of the lumbar spine. No acute compression fractures. Mild multilevel degenerative changes. No bony lytic lesions. ? Signed by: Verena Garay 08/27/2025 1:46 PM Dictation workstation: ?? [id number] Procedure Note Verena Garay MD - 08/27/2025 Interpreted By: Verena Garay, STUDY: XR LUMBAR SPINE 2-3 VIEWS, 08/27/2025 1:33 pm INDICATION: Signs/Symptoms:pain ACCESSION NUMBER(S): [id number] ORDERING CLINICIAN: VERENA GARAY FINDINGS: Lumbar spine x-rays two views AP and lateral view: Satisfactory alignment of the lumbar spine. No acute compression fractures. Mild multilevel degenerative changes. No bony lytic lesions. Signed by: Verena Garay 08/27/2025 1:46 PM Dictation workstation: [id number] Authorizing ProviderResult TypeResult StatusHarbib Garay MDIMG XR PROCEDURES Final Result * ECG 12 lead (08/06/2025 11:46 PM EDT)ComponentValueRef RangeTest Method Analysis TimePerformed AtPathologist SignatureVentricular Kvuo43MKICQADJhtoku Xrfw32QWVETKPXL Fvnzbfzo898buECXMMPG Fezkcqfu17ukNSKYVD Fxfujapb993ezZGIYVHJ Calculation(Bazett)458msMUSEP Dnyp97xiithdcCXCWS Wfaq84tkrcenhPLFDA Axis47 degreesMUSEQRS Melmw54pirqtUKIVV Zgshj741rgSDSGF Brhqa014toRAHBN Xhyoqn903bq MUSET Cxutsz930rfPWGQLPV Lejmshzxbe129xjSHWAWihkegca (Source)Anatomical Location / LateralityCollection Method / VolumeCollection TimeReceived Time 08/06/2025 11:43 PM EDT08/08/2025 5:55 PM EDT Narrative MUSE - 08/08/2025 5:56 PM EDT Normal sinus rhythm Normal ECG When compared with ECG of 18-APR-2025 16:26, Vent. rate has decreased BY ??41 BPM See ED provider note for full interpretation and clinical correlation Confirmed by Shelby Hendricks ([id number]) on 08/08/2025 5:55:59 PM Procedure Note Shelby Hendricks PA-C - 08/08/2025 Normal sinus rhythm Normal ECG When compared with ECG of 18-APR-2025 16:26, Vent. rate has decreased BY 41 BPM See ED provider note for full interpretation and clinical correlation Confirmed by Shelby Hendricks ([id number]) on 08/08/2025 5:55:59 PM Authorizing ProviderResult TypeResult StatusAndreamber Sibley DOECG ORDERABLESFinal ResultPerforming OrganizationAddressCity/State/ZIP CodePhone Number MUSE * XR chest 1 view (08/06/2025 11:40 PM EDT)Anatomical RegionLateralityModality Thoracic, ChestComputed RadiographySpecimen (Source)Anatomical Location / LateralityCollection Method / VolumeCollection TimeReceived Time08/07/2025 12:29 AM EDT08/07/2025 12:29 AM EDT Impressions 08/07/2025 12:27 AM EDT No acute cardiopulmonary process. ?? MACRO: None ?? Signed by: Ellis Whalen 08/07/2025 12:27 AM Dictation workstation: ?? [id number] Narrative 08/07/2025 12:27 AM EDT Interpreted By: Ellis Whalen, STUDY: XR CHEST 1 VIEW; ??08/06/2025 11:40 pm ?? INDICATION: Signs/Symptoms:abdominal pain, n/v. ?? COMPARISON: None. ?? ACCESSION NUMBER(S): [id number] ?? ORDERING CLINICIAN: ORLANDO SIBLEY ?? FINDINGS: Cardiomediastinal silhouette and pulmonary vasculature are within normal limits. No consolidation, effusion or pneumothorax. ?? Procedure Note Ellis Whalen MD - 08/07/2025 Interpreted By: Ellis Whalen, STUDY: XR CHEST 1 VIEW; 08/06/2025 11:40 pm INDICATION: Signs/Symptoms:abdominal pain, n/v. COMPARISON: None. ACCESSION NUMBER(S): [id number] ORDERING CLINICIAN: ORLANDO SIBLEY FINDINGS: Cardiomediastinal silhouette and pulmonary vasculature are within normal limits. No consolidation, effusion or pneumothorax. IMPRESSION: No acute cardiopulmonary process. MACRO: None Signed by: Ellis Whalen 08/07/2025 12:27 AM Dictation workstation: [id number] Authorizing ProviderResult TypeResult StatusAndreamber Sibley [facility] XR PROCEDURES Final Result * CT abdomen pelvis w IV contrast (08/06/2025 11:37 PM EDT)Anatomical Region LateralityModalityAbdominal, BodyComputed TomographySpecimen (Source) Anatomical Location / LateralityCollection Method / VolumeCollection Time Received Time08/07/2025 12:18 AM EDT08/07/2025 12:18 AM EDT Impressions 08/07/2025 12:17 AM EDT Wall thickening of the urinary bladder may be related to under distention however correlation for cystitis suggestive. ?? Hepatic steatosis with hepatomegaly. ?? MACRO: None ?? Signed by: Alivia Banerjee 08/07/2025 12:17 AM Dictation workstation: ?? [id number] Narrative 08/07/2025 12:17 AM EDT Interpreted By: Alivia Banerjee, STUDY: CT ABDOMEN PELVIS W IV CONTRAST; ??08/06/2025 11:37 pm ?? INDICATION: Signs/Symptoms:abdominal pain hx of diverticulitis. ?? COMPARISON: None. ?? ACCESSION NUMBER(S): [id number] ?? ORDERING CLINICIAN: ORLANDO SIBLEY ?? TECHNIQUE: Axial CT images of the abdomen and pelvis with coronal and sagittal reconstructed images obtained after intravenous administration of contrast ?? FINDINGS: LOWER CHEST: No acute abnormality of the lung bases. Mild interstitial prominence. BONES: No acute osseous abnormality. ABDOMINAL WALL: A tiny fat containing left inguinal hernia. ?? ABDOMEN: ?? LIVER: Focal fat along the falciform ligament. Enlarged. BILE DUCTS: Normal caliber. GALLBLADDER: Contracted. PANCREAS: Within normal limits. SPLEEN: Within normal limits. ADRENALS: Within normal limits. KIDNEYS and URETERS: Symmetric renal enhancement. No hydronephrosis or perinephric fluid collection. ? VESSELS: No aortic aneurysm. RETROPERITONEUM: No pathologically enlarged retroperitoneal lymph nodes. ?? PELVIS: ?? REPRODUCTIVE ORGANS: No pelvic masses. BLADDER: Under distention with mild indeterminate wall thickening. ?? BOWEL: No dilated bowel. Diverticulosis with wall thickening. No inflammatory changes to suggest acute diverticulitis. Normal appendix. PERITONEUM: No ascites or free air, no fluid collection. ?? Procedure Note Alivia Banerjee S, DO - 08/07/2025 Interpreted By: Alivia Banerjee, STUDY: CT ABDOMEN PELVIS W IV CONTRAST; 08/06/2025 11:37 pm INDICATION: Signs/Symptoms:abdominal pain hx of diverticulitis. COMPARISON: None. ACCESSION NUMBER(S): [id number] ORDERING CLINICIAN: ORLANDO SIBLEY TECHNIQUE: Axial CT images of the abdomen and pelvis with coronal and sagittal reconstructed images obtained after intravenous administration of contrast FINDINGS: LOWER CHEST: No acute abnormality of the lung bases. Mild interstitial prominence. BONES: No acute osseous abnormality. ABDOMINAL WALL: A tiny fat containing left inguinal hernia. ABDOMEN: LIVER: Focal fat along the falciform ligament. Enlarged. BILE DUCTS: Normal caliber. GALLBLADDER: Contracted. PANCREAS: Within normal limits. SPLEEN: Within normal limits. ADRENALS: Within normal limits. KIDNEYS and URETERS: Symmetric renal enhancement. No hydronephrosis or perinephric fluid collection. VESSELS: No aortic aneurysm. RETROPERITONEUM: No pathologically enlarged retroperitoneal lymph nodes. PELVIS: REPRODUCTIVE ORGANS: No pelvic masses. BLADDER: Under distention with mild indeterminate wall thickening. BOWEL: No dilated bowel. Diverticulosis with wall thickening. No inflammatory changes to suggest acute diverticulitis. Normal appendix. PERITONEUM: No ascites or free air, no fluid collection. IMPRESSION: Wall thickening of the urinary bladder may be related to under distention however correlation for cystitis suggestive. Hepatic steatosis with hepatomegaly. MACRO: None Signed by: Alivia Banerjee 08/07/2025 12:17 AM Dictation workstation: [id number] Authorizing ProviderResult TypeResult StatusAndreamber Sibley [facility] CT PROCEDURES Final Result * (ABNORMAL) CBC and Auto Differential (08/06/2025 11:35 PM EDT)ComponentValue Ref RangeTest MethodAnalysis TimePerformed AtPathologist SignatureWBC7.44.4 - 11.3 x10*3/uL LAB HEMATOLOGY METHOD 08/06/2025 11:57 PM [facility] LABnRBC0.00.0 - 0.0 /100 WBCs LAB HEMATOLOGY METHOD 08/06/2025 11:57 PM [facility] LABRBC4.21(L)4.50 - 5.90 x10*6/uL LAB HEMATOLOGY METHOD 08/06/2025 11:57 PM [facility] TZBBhwtoaoxyq90.2(L)13.5 - 17.5 g/dL LAB HEMATOLOGY METHOD 08/06/2025 11:57 PM [facility] IHOIcfbydioze05.2(L)41.0 - 52.0 % LAB HEMATOLOGY METHOD 08/06/2025 11:57 PM [facility] PTYFCA1634 - 100 fL LAB HEMATOLOGY METHOD 08/06/2025 11:57 PM [facility] LFGWEE07.426.0 - 34.0 pg LAB HEMATOLOGY METHOD 08/06/2025 11:57 PM [facility] FWBEKIA86.832.0 - 36.0 g/dL LAB HEMATOLOGY METHOD 08/06/2025 11:57 PM [facility] MTNSEX60.711.5 - 14.5 % LAB HEMATOLOGY METHOD 08/06/2025 11:57 PM [facility] JVSVdfsdaire501433 - 450 x10*3/uL LAB HEMATOLOGY METHOD 08/06/2025 11:57 PM [facility] LABNeutrophils %57.740.0 - 80.0 % LAB HEMATOLOGY METHOD 08/06/2025 11:57 PM [facility] LABImmature Granulocytes %, Automated0.40.0 - 0.9 % LAB HEMATOLOGY METHOD 08/06/2025 11:57 PM [facility] LABComment:Immature Granulocyte Count (IG) includes promyelocytes, myelocytes and metamyelocytes but does not i nclude bands. Percent differential counts (%) should be interpreted in the context of the absolute cell counts (cells/UL).Lymphocytes %29.213.0 - 44.0 % LAB HEMATOLOGY METHOD 08/06/2025 11:57 PM [facility] LABMonocytes %7.52.0 - 10.0 % LAB HEMATOLOGY METHOD 08/06/2025 11:57 PM [facility] LABEosinophils %4.10.0 - 6.0 % LAB HEMATOLOGY METHOD 08/06/2025 11:57 PM [facility] LABBasophils %1.10.0 - 2.0 % LAB HEMATOLOGY METHOD 08/06/2025 11:57 PM [facility] LABNeutrophils Absolute4.251.20 - 7.70 x10*3/uL LAB HEMATOLOGY METHOD 08/06/2025 11:57 PM [facility] LABComment:Percent differential counts (%) should be interpreted in the context of the absolute cell counts (ce lls/uL).Immature Granulocytes Absolute, Automated0.030.00 - 0.70 x10*3/uL LAB HEMATOLOGY METHOD 08/06/2025 11:57 PM [facility] LABLymphocytes Absolute2.151.20 - 4.80 x10*3/uL LAB HEMATOLOGY METHOD 08/06/2025 11:57 PM [facility] LABMonocytes Absolute0.550.10 - 1.00 x10*3/uL LAB HEMATOLOGY METHOD 08/06/2025 11:57 PM [facility] LABEosinophils Absolute0.300.00 - 0.70 x10*3/uL LAB HEMATOLOGY METHOD 08/06/2025 11:57 PM [facility] LABBasophils Absolute0.080.00 - 0.10 x10*3/uL LAB HEMATOLOGY METHOD 08/06/2025 11:57 PM [facility] LABSpecimen (Source)Anatomical Location / LateralityCollection Method / VolumeCollection TimeReceived TimeBlood Venous blood specimen / UnknownVenipuncture / Zlgbmei5608/06/2025 11:35 PM EDT 08/06/2025 11:54 PM EDT Narrative Authorizing ProviderResult TypeResult StatusAndreamber Sibley DOLAB BLOOD ORDERABLES Final ResultPerforming OrganizationAddressCity/State/ZIP CodePhone Number [facility] [address] [place] [address] * Extra Urine Garay Tube (08/06/2025 11:19 PM EDT)ComponentValueRef RangeTest MethodAnalysis TimePerformed AtPathologist SignatureExtra Tube08/07/2025 8:29 AM [facility] LABSpecimen (Source)Anatomical Location / LateralityCollection Method / VolumeCollection TimeReceived TimeUrineUrine specimen / Jkobqet1208/06/2025 11:19 PM EDT08/06/2025 11:25 PM EDT Narrative Authorizing ProviderResult TypeResult StatusAndreamber BettsSibley DOLAB URINE ORDERABLES Final ResultPerforming OrganizationAddressCity/State/ZIP CodePhone Number [facility] [address] [place] [address] * (ABNORMAL) Urinalysis with Reflex Culture (08/06/2025 11:19 PM EDT)Component ValueRef RangeTest MethodAnalysis TimePerformed AtPathologist SignatureColor, QhqhrTelek-KjhjmbFqyys-Xmuzds, Yellow, Dark-Pcgmlg8908/06/2025 11:28 PM EDT [facility] LABAppearance, RoqjrDbfnjQtukd06/09/2025 11:28 PM EDT [facility] LABSpecific [place], Urine1.0151.005 - 1.2277408/06/2025 11:28 PM [facility] LABpH, Urine5.55.0, 5.5, 6.0, 6.5, 7.0, 7.5, 8. 11:28 PM [facility] LABProtein, UrineNEGATIVE NEGATIVE, 10 (TRACE), 20 (TRACE) mg/dL08/06/2025 11:28 PM [facility] LABGlucose, UrineNormalNormal mg/dL08/06/2025 11:28 PM [facility] LABBlood, UrineNEGATIVENEGATIVE mg/dL08/06/2025 11:28 PM [facility] LABKetones, UrineNEGATIVENEGATIVE mg/dL08/06/2025 11:28 PM [facility] LABBilirubin, UrineNEGATIVENEGATIVE mg/dL 08/06/2025 11:28 PM [facility] LABUrobilinogen, Urine2 (1+)(A) Normal mg/dL08/06/2025 11:28 PM [facility] LABComment: Due to a manufacturing issue, low positive urobilinogen results may be falsely positive. Correlate with urine bilirubin and additional clinical/laboratory findings to assess the risk of hemolytic anemia or liver disease. If clinically indicated, repeat testing with an alternate method is available by contacting the laboratory within 24 hours. Some pigments and medications may cause a false positive urobilinogen. Nitrite, HvzpzSRBYKWKFZYLLVSGM37/09/2025 11:28 PM [facility] LAB Leukocyte Esterase, XgsdoXEUNPLEXRBMILROU16/09/2025 11:28 PM [facility] LABSpecimen (Source)Anatomical Location / LateralityCollection Method / VolumeCollection TimeReceived TimeUrineUrine specimen / Ybbhrue3908/06/2025 11:19 PM EDT08/06/2025 11:25 PM EDT Narrative Authorizing ProviderResult TypeResult StatusAndreamber Sibley DOLAB URINE ORDERABLES Final ResultPerforming OrganizationAddressCity/State/ZIP CodePhone Number [facility] [address] [place] [address] * Troponin I, High Sensitivity (08/06/2025 11:14 PM EDT)ComponentValueRef Range Test MethodAnalysis TimePerformed AtPathologist SignatureTroponin I, High Rskijtgzgwo62 - 20 ng/L LAB IMMUNOASSAY METHOD 08/06/2025 11:53 PM [facility] LABSpecimen (Source)Anatomical Location / LateralityCollection Method / VolumeCollection TimeReceived TimeBlood Venous blood specimen / UnknownVenipuncture / Oblyzci2408/06/2025 11:14 PM EDT 08/06/2025 11:19 PM EDT Narrative [facility] - 08/06/2025 11:53 PM EDT Less than 99th percentile of normal range cutoff- Female and children under 18 years old <14 ng/L; Male <21 ng/L: Negative Repeat testing should be performed if clinically indicated. Female and children under 18 years old 14-50 ng/L; Male 21-50 ng/L: Consistent with possible cardiac damage and possible increased clinical risk. Serial measurements may help to assess extent of myocardial damage. >50 ng/L: Consistent with cardiac damage, increased clinical risk and myocardial infarction. Serial measurements may help assess extent of myocardial damage. NOTE: Children less than 1 year old may have higher baseline troponin levels and results should be interpreted in conjunction with the overall clinical context. NOTE: Troponin I testing is performed using a different testing methodology at [facility] than at other [facility] hospitals. Direct result comparisons should only be made within the same method. Authorizing ProviderResult TypeResult StatusAndrashad Sibley DOLAB BLOOD ORDERABLES Final ResultPerforming OrganizationAddressCity/State/ZIP CodePhone Number [facility] [address] [place] [address] * Magnesium (08/06/2025 11:14 PM EDT)ComponentValueRef RangeTest MethodAnalysis TimePerformed AtPathologist SignatureMagnesium2.011.60 - 2.40 mg/dL LAB CHEMISTRY METHOD 08/06/2025 11:48 PM [facility] LABSpecimen (Source)Anatomical Location / LateralityCollection Method / VolumeCollection TimeReceived TimeBlood Venous blood specimen / UnknownVenipuncture / Rpstbve7008/06/2025 11:14 PM EDT 08/06/2025 11:19 PM EDT Narrative Authorizing ProviderResult TypeResult StatusAndKaleida HealthAB BLOOD ORDERABLES Final ResultPerforming OrganizationAddressCity/State/ZIP CodePhone Number [facility] [address] [place] [address] * Lipase (08/06/2025 11:14 PM EDT)ComponentValueRef RangeTest MethodAnalysis TimePerformed AtPathologist XnkompfisFmbmkg552 - 82 U/L LAB CHEMISTRY METHOD 08/06/2025 11:48 PM [facility] LABSpecimen (Source)Anatomical Location / LateralityCollection Method / VolumeCollection TimeReceived TimeBlood Venous blood specimen / UnknownVenipuncture / Iymelqm0308/06/2025 11:14 PM EDT 08/06/2025 11:19 PM EDT Narrative [facility] - 08/06/2025 11:48 PM EDT Venipuncture immediately after or during the administration of Metamizole may lead to falsely low results. Testing should be performed immediately prior to Metamizole dosing. Authorizing ProviderResult TypeResult [facility] B[facility] ORDERAB[facility] Final ResultPerforming OrganizationAddressCity/State/ZIP CodePhone Number [facility] [address] [place] [address] * Lactate (08/06/2025 11:14 PM EDT)ComponentValueRef RangeTest MethodAnalysis TimePerformed AtPathologist SignatureLactate1.90.4 - 2.0 mmol/L LAB CHEMISTRY METHOD 08/06/2025 11:47 PM [facility] LABSpecimen (Source)Anatomical Location / LateralityCollection Method / VolumeCollection TimeReceived TimeBlood Venous blood specimen / UnknownVenipuncture / Gfupybu3008/06/2025 11:14 PM EDT 08/06/2025 11:19 PM EDT Narrative [facility] - 08/06/2025 11:47 PM EDT Venipuncture immediately after or during the administration of Metamizole may lead to falsely low results. Testing should be performed immediately prior to Metamizole dosing. Authorizing ProviderResult TypeResult StatusAndrea [facility] BLOOD ORDERABLES Final ResultPerforming OrganizationAddressCity/State/ZIP CodePhone Number [facility] [address] [place] [address] * (ABNORMAL) Comprehensive Metabolic Panel (08/06/2025 11:14 PM EDT)Component ValueRef RangeTest MethodAnalysis TimePerformed AtPathologist SignatureGlucose 8674 - 99 mg/dL LAB CHEMISTRY METHOD 08/06/2025 11:48 PM [facility] [id number] - 145 mmol/L LAB CHEMISTRY METHOD 08/06/2025 11:48 PM [facility] LABPotassium3.3(L)3.5 - 5.3 mmol/L LAB CHEMISTRY METHOD 08/06/2025 11:48 PM [facility] LABComment:MILD HEMOLYSIS DETECTED. The result may be falsely elevated due to hemolysis or other interferents. Clinical correlation is recommended. Repeat testing may be considered.Chloride 47275 - 107 mmol/L LAB CHEMISTRY METHOD 08/06/2025 11:48 PM [facility] JQLBeqryrajhbv7101 - 32 mmol/L LAB CHEMISTRY METHOD 08/06/2025 11:48 PM [facility] LABAnion Nmt5127 - 20 mmol/L LAB CHEMISTRY METHOD 08/06/2025 11:48 PM [facility] LABUrea Nitrogen5(L)6 - 23 mg/dL LAB CHEMISTRY METHOD 08/06/2025 11:48 PM [facility] LABCreatinine0.840.50 - 1.30 mg/dL LAB CHEMISTRY METHOD 08/06/2025 11:48 PM [facility] LABeGFR>90>60 mL/min/1.73m*2 LAB CHEMISTRY METHOD 08/06/2025 11:48 PM [facility] LABComment: Calculations of estimated GFR are performed using the 2020 CKD-EPI Study Refit equation without therace variable for the IDMS-Traceable creatinine methods. https://jasn.asnjournals.org/content//ASN.2427717733 Calcium9.18.6 - 10.3 mg/dL LAB CHEMISTRY METHOD 08/06/2025 11:48 PM [facility] LABAlbumin4.13.4 - 5.0 g/dL LAB CHEMISTRY METHOD 08/06/2025 11:48 PM [facility] LABAlkaline Yqjwtyvjxyw0472 - 120 U/L LAB CHEMISTRY METHOD 08/06/2025 11:48 PM [facility] LABTotal Protein7.16.4 - 8.2 g/dL LAB CHEMISTRY METHOD 08/06/2025 11:48 PM [facility] GBXIRN520 - 39 U/L LAB CHEMISTRY METHOD 08/06/2025 11:48 PM [facility] LABComment:MILD HEMOLYSIS DETECTED. The result may be falsely elevated due to hemolysis or other interferents. Clinical correlation is recommended. Repeat testing may be considered.Bilirubin, Total0.50.0 - 1.2 mg/dL LAB CHEMISTRY METHOD 08/06/2025 11:48 PM [facility] ASVLQP7080 - 52 U/L LAB CHEMISTRY METHOD 08/06/2025 11:48 PM [facility] LABComment:Patients treated with Sulfasalazine may generate falsely decreased results for ALT.Specimen (Source) Anatomical Location / LateralityCollection Method / VolumeCollection Time Received TimeBloodVenous blood specimen / UnknownVenipuncture / Unknown 08/06/2025 11:14 PM EDT08/06/2025 11:19 PM EDT Narrative Authorizing ProviderResult TypeResult StatusAndreamber MCCORMICK BLOOD ORDERABLES Final ResultPerforming OrganizationAddressCity/State/ZIP CodePhone Number [facility] [address] [place] [address] * Lavender Top (08/06/2025 11:11 PM EDT)ComponentValueRef RangeTest Method Analysis TimePerformed AtPathologist SignatureExtra TubeHold for add-ons. 08/07/2025 8:29 AM [facility] LABComment:Auto resulted.Specimen (Source)Anatomical Location / LateralityCollection Method / VolumeCollection TimeReceived TimeBloodVenous blood specimen / Rfnqptd7308/06/2025 11:11 PM EDT 08/06/2025 11:20 PM EDT Narrative Authorizing ProviderResult TypeResult StatusAndrea Sibley DOLAB BLOOD ORDERABLES Final ResultPerforming OrganizationAddressCity/State/ZIP CodePhone [facility] [address] [place] [address] * Light Blue Top (08/06/2025 11:11 PM EDT)ComponentValueRef RangeTest Method Analysis TimePerformed AtPathologist SignatureExtra TubeHold for add-ons. 08/07/2025 8:29 AM [facility] LABComment:Auto resulted.Specimen (Source)Anatomical Location / LateralityCollection Method / VolumeCollection TimeReceived TimeBloodVenous blood specimen / Hqhnflo2308/06/2025 11:11 PM EDT 08/06/2025 11:20 PM EDT Narrative Authorizing ProviderResult TypeResult StatusAndrea Sibley DOLAB BLOOD ORDERABLES Final ResultPerforming OrganizationAddressty/State/[facility] CampusPhone [facility] [address] [place] [address] from Last 3 Months Insurance Care Teams Team MemberRelationshipSpecialtyStart DateEnd Date Generic Provider, No Assigned [place], [place] [id number] PCP - GeneralGeneral Practice08/06/25
[2025-10-02 00:02] VITALS: BP 133/83; PULSE 100; TEMP 36.6; O2SAT 100
--- NOTE | 2025-10-02 00:03 | ED.LOWEXI1 ---
HPI HPI - Extremity Injury (Lower) General Chief Complaint: Extremity Injury, Lower Stated Complaint: RIGHT ANKLE TWISTED AND BACK IS HURTING Time Seen by Provider: 10/01/25 23:38 Source: patient Mode of arrival: Wheelchair History of Present Illness HPI Narrative: presents complaining of right ankle pain all over and bilat knee pain from walking long distance today. States he has still further to walk to get home. Has not taken any medication for his pain. Denies injury other than pain of his joints from walking. no muscular pain, No fever or chills. No joint swelling Related Data Allergies Allergy/AdvReac Type Severity Reaction Status Date / Time azithromycin AdvReac Severe Rash Verified 10/01/25 20:17 naproxen AdvReac Severe Vomiting Verified 10/01/25 20:17 Opioid HPI Opioid Management Most Recent Pain and Opioid Data: Last Pain Scale 9 10/02/25, 00:03 Review of Systems ROS Status of ROS 10 or more systems reviewed and unremarkable except as noted in history and below PFSH PFSH Social History Little interest or pleasure in doing things: not at all Feeling down, depressed, or hopeless: not at all Exam Constitutional Vital Signs, click to edit/add: Last Vital Signs Temp 97.8 F 10/02/25 00:02 Pulse 100 H 10/02/25 00:02 Resp 20 10/02/25 00:02 BP 133/83 10/02/25 00:02 Pulse Ox 100 10/02/25 00:02 O2 Del Method Room Air 10/01/25 20:17 Common normals: average body habitus, oriented x3, no limitations, healthy appearing, alert and well nourished [facility] Common normals: normocephalic and head/scalp atraumatic Respiratory Common normals: normal respiratory effort, no retractions, no use of accessory muscles and clear to auscultation bilaterally Cardio Common normals: regular rate, regular rhythm, S1 normal heart sound and S2 normal heart sound Extremity Other: no deformity of his knees or ankles. Mild tenderness Neuro Common normals: oriented x3, CN's II-XII intact bilaterally and moves all extremities Psych Appearance: grossly normal Course Vital Signs Vital signs: Vital Signs Pulse Rate 133 H 10/01/25 20:17 Respiratory Rate 20 10/01/25 20:17 Blood Pressure 127/83 10/01/25 20:17 Pulse Oximetry 98 10/01/25 20:17 Oxygen Delivery Method Room Air 10/01/25 20:17 Temperature 97.8 F 10/02/25 00:02 Pulse Rate 100 H 10/02/25 00:02 Respiratory Rate 20 10/02/25 00:02 Blood Pressure 133/83 10/02/25 00:02 Pulse Oximetry 100 10/02/25 00:02 Oxygen Delivery Method Room Air 10/01/25 20:17 MDM - Extremity Injury (Lower) MDM Narrative Medical decision making narrative: initially triaged with right ankle pain. xray was taken while he was in the waiting room and ankle xray was neg. Once back in the exam room he complained of pain of his knees because he had been walking long distance. No myalgia or joint swelling. Exam of his ankles and knees without deformity or swelling. FROM but uncomfortable. Patient treated with injection of solumedrol and Toradol and observed in the ED. Rechecked and admitted his joints were better. He was asking for assistance to get to his destination. Patient given prescription for prednisone for his arthralgia and will see if nursing home social worker can assist him Discharge Plan Discharge Chief Complaint: Extremity Injury, Lower Clinical Impression: Arthralgia Patient Disposition: Home, Self-Care Print Language: Yi Instructions: Arthralgia (ED) Referrals: Physician,Non-Staff, [Primary Care Provider] - 1 week Discharge Date/Time: 10/02/25 06:45
[2025-10-02] MEDS: KETOROLAC TROMETHAMINE 60 MG/2 ML VIAL IM (00:39)
[2025-10-02] MEDS: METHYLPREDNISOLONE SOD SUCC PF 125 MG/2 ML VIAL IM (00:40)
[2025-10-02 04:20] VITALS: PULSE 74
[2025-10-02 06:44] VITALS: BP 99/68; PULSE 68; O2SAT 98
--- NOTE | 2025-10-02 08:56 | SWNOTE1 ---
HEAVEN received message from case management that security called and pt was discharged from the ED and needs a ride to [employer] station in [place]. SW called security back to get the pt's information. SW called trips and they will be here between 10:45-11:15. SW called security and notified them of time and security will let the patient know.
== END 2025-10-02 06:45 | disposition home or self-care (01) ==
PROVIDERS: Emergency Provider Internal Medicine
DX: M25.571 Pain in right ankle and joints of right foot (principal); M25.562 Pain in left knee; M25.561 Pain in right knee
CPT/HCPCS: 73610; 96372; 99284; J1885; J2919